=== PATIENT | female | born 1955 | race Two or more races ===

== ENCOUNTER 2025-03-11 20:14 | Emergency (ER) | payer SELFPAY ==
[2025-03-11 20:15] VITALS: BP 147/76
[2025-03-11 20:39] LABS: Urine Character Clear (Clear)
[2025-03-11 20:48] LABS: Urine Squamous Cell >30 /LPF (Few)
[2025-03-11 20:49] LABS: Urine Red Blood Cell None Seen /HPF (0-2)
[2025-03-11 20:55] LABS: Hematocrit 41.9 % (37.0-47.0); Hemoglobin 14.0 g/dL (12.0-16.0); Mean Corp Hgb Conc. 33.4 g/dL (33.0-37.0); Mean Corpuscular Volume 89.3 fL (81.0-99.0); Platelet Count 158 10^3/uL (130-400); Red Cell Dist. Width 13.4 % (11.5-14.5)
[2025-03-11 20:56] LABS: ALT (SGPT) 13 U/L (0-35); AST (SGOT) 23 U/L (14-36); Albumin 4.2 g/dl (3.5-5.0); Alkaline Phosphatase 82 U/L (38-126); Blood Urea Nitrogen 14 mg/dl (7-17); Calcium 9.2 mg/dl (8.4-10.2); Carbon Dioxide 27 mmol/L (22-30); Chloride 102 mmol/L (98-107); Glucose 341 mg/dl (70-99); Lipase 19 U/L (23-300); Potassium 4.9 mmol/L (3.5-5.1); Sodium 133 mmol/L (135-145); Total Protein 7.9 g/dl (6.3-8.2); eGFR > 60.00
--- NOTE | 2025-03-11 21:35 | ED.GENMED ---
Addendum entered and electronically signed by Isma Garcia PA-C 03/15/25 09:50:
Called and left message for pt to return call regarding positive urine culture. No abx given. May represent asymptomatic bacteruria
Original Note:
History of Present Illness
General
Chief Complaint: Abdominal Pain
Time Seen by Provider: 03/11/25 21:34
History of Present Illness
History of Present Illness:
FOCUSED PAST MEDICAL HISTORY
- IDDM, had cholecystectomy and appendectomy in the past
REVIEW OF OLD RECORDS
- No old records available for review in [facility]
Note:
CHIEF COMPLAINT(S)
Severe sharp abdominal pain, predominantly on the right side.
HISTORY OF PRESENT ILLNESS
The patient is a 69-year-old female presenting with severe sharp abdominal pain. She reports that the pain started today and is described as very bad. The pain is predominantly located on the right side of the abdomen but also radiates throughout
her stomach and to her back. The patient notes that the pain is sharp and intermittent. She has a history of having her gallbladder removed and possibly the appendix, although this is uncertain. Surgical scars are present in the epigastrium and
right upper quadrant. She reports vomiting approximately one week ago but has had no episodes since. She took medication called 'Bolmol-Nol' prior to arriving at the emergency room. The patient has had a normal appetite today and does not require
narcotic medication for pain relief at this time.
ADDITIONAL HISTORY OBTAINED FROM SOURCES OTHER THAN THE PATIENT
The patient�s family reports that she experienced a little vomiting three to four days ago and once last week. They mentioned that the patient occasionally has pain that comes and goes.
EXTERNAL RECORDS REVIEWED
Review of prior records indicates removal of gallbladder with postoperative complications leading to additional surgery. No documented laparoscopic approach noted for appendectomy.
PAST MEDICAL AND SURIGICAL HISTORY
The patient underwent cholecystectomy (gallbladder removal) approximately 20 years ago with subsequent surgical intervention due to inflammation. The presence or absence of appendix removal remains ambiguous. She states she had her surgeries 20
years ago and I see surgical scars in the upper abdomen but no lower abdominal surgical scars.
PHYSICAL EXAM
General: Alert, intermittently appears uncomfortable
Skin: Warm, dry. No signs of shingles.
Head: Normocephalic, atraumatic.
Neck: Supple, trachea midline.
Eye, Ears, Nose, Mouth and Throat: Oral mucosa moist.
Cardiovascular: Normal peripheral perfusion, No edema.
Respiratory: Respirations are non-labored.
Gastrointestinal: Abdomen displays moderate, diffuse tenderness, more pronounced on the right side.
Back: Normal range of motion, Normal alignment.
Musculoskeletal: Normal ROM, normal strength.
Neurological: Alert and oriented to person, place, time, and situation, No focal neurological deficit observed.
Psychiatric: Cooperative, appropriate mood & affect.
PLAN
1. Initiate intravenous line for fluid administration.
2. Order a computed tomography (CAT) scan of the abdomen to evaluate for possible appendiceal pathology or other causes of pain.
3. Monitor the patients condition and reassess after imaging.
4. Address pain management as appropriate, will give narcotic analgesia
DIFFERENTIAL DIAGNOSIS
The Differential Diagnosis includes, in no particular order and is not limited to:
1. Appendicitis
2. Pancreatitis
3. Biliary colic or cholecystitis
4. Intestinal obstruction
5. Diverticulitis
6. Nephrolithiasis
7. Gastritis or peptic ulcer disease
8. Hepatitis
9. Mesenteric ischemia
10. Abdominal aortic aneurysm
RADIOLOGY
- CT shows normal appendix, no definite bowel obstruction, status post cholecystectomy
LABS
- White count is normal, chemistry showed glucose of 341 but normal bicarb, lipase normal, urinalysis suggest contamination
SUMMARY OF ENCOUNTER
The patient, a 69-year-old female, presented to the emergency department with severe sharp abdominal pain, predominantly on the right side, radiating throughout her stomach and back. The patient has a history of cholecystectomy but still retains her
appendix as confirmed by imaging. The initial concern of appendicitis was ruled out as the appendix is not inflamed. Imaging also showed no signs of intestinal obstruction. The patient was noted to have some degree of constipation, which could be
contributing to her abdominal pain. A narcotic was administered for pain relief, and she was advised to take polyethylene glycol 3350 (MiraLAX) once or twice daily to relieve constipation, as a bowel movement may alleviate her pain. The decision was
made to discharge the patient with follow-up recommendations.
DISPOSITION
Discharge.
ASSESSMENT
The patients right-sided abdominal pain is likely related to constipation, as imaging ruled out appendicitis and intestinal obstruction.
EMERGENCY TREATMENTS ADMINISTERED
A narcotic was administered for pain relief.
PATIENT EDUCATION AND COUNSELING
The patient was advised to take polyethylene glycol 3350 (MiraLAX) once or twice daily to manage constipation over the next few days, as this may help alleviate abdominal pain.
FOLLOW-UP INSTRUCTIONS
The patient was discharged with instructions to follow up with her primary care physician for further evaluation if symptoms persist or worsen.
MEDICATION RECONCILIATION
- Polyethylene glycol 3350 (MiraLAX) was recommended for constipation management.
MEDICAL DECISION MAKING
-Complexity of Data Reviewed: Chronic conditions affecting care [History of cholecystectomy] and the differential diagnosis includes appendicitis, pancreatitis, biliary colic or cholecystitis, intestinal obstruction, diverticulitis, nephrolithiasis,
gastritis or peptic ulcer disease, hepatitis, mesenteric ischemia, abdominal aortic aneurysm.
-Data:
Category 1
Clinical information was obtained from an independent historian (family provided additional history regarding recent vomiting episodes).
Category 2
My independent interpretation of the computed tomography (CT) scan indicates the appendix is present and not inflamed, no signs of obstruction.
-Risk:
Consideration of Admission/Observation: Escalation of care including admission/observation was considered given the complexity and risk of the patients presenting complaint, exam findings, and their underlying comorbidities. However, ultimately I
feel the patient is safe for outpatient management with close follow-up. Reasoning: Work-up reassuring, does not reveal any acute life/organ-threatening processes, patients symptoms well controlled upon reevaluation, reexamination is reassuring,
vitals are stable, patient agreeable with discharge, reliable for follow-up.
DIAGNOSIS
- Abdominal pain, unspecified (ICD-10: R10.9)
- Constipation (ICD-10: K59.00)
UPDATE
- CT imaging reassuring and does show some degree of constipation
- Family states she has been constipated, recommended MiraLAX
- No sign of appendicitis based on CT, she does still have her appendix
- Appears comfortable on reassessment 11:05 PM
Phy Exam
Physical Exam
Physical Exam:
See HPI
Course
Orders/Labs/Results
Orders:
Orders
03/11/25 20:31
Complete Blood Count/With Diff Urgent
Comprehensive Metabolic Panel Urgent
Lipase Urgent
Urine Microscopic Reflex Cult Urgent
Urine Reflex Culture from [facility] [Urinalysis Reflex To Culture] Urgent
Date Specimen was Collected: 03/11/25
Time Specimen was Collected: 20:20
Urine Culture Urgent
ALEXYS Source: U
Specimen Description:
Date Specimen was Collected: 03/11/25
Time Specimen was Collected: 20:20
03/11/25 21:45
CT Abd/pelvis W Iv Cont Urgent
Comment:
Reason For Exam: R sided abd pain; resolved vomiting; ongoing pain
HYDROmorphone [Dilaudid] 0.5 mg IV NOW STA
Ondansetron Injectable [Zofran] 4 mg IV NOW STA
03/11/25 21:56
0.9% Sodium Chloride 1000 ml [Nss] 1,000 ml IV BOLUS
HYDROmorphone [Dilaudid] 0.5 mg IV NOW STA
Ondansetron Injectable [Zofran] 4 mg IV NOW STA
Abnormal Lab Results
03/11/25
20:31
MPV 10.9 H fL
(7.4-10.4)
Absolute Monos (auto) 0.8 H 10^3/uL
(0.1-0.6)
Sodium 133 L mmol/L
(135-145)
Glucose 341 H mg/dl
(70-99)
Lipase 19 L U/L
(23-300)
Urine Nitrite (Reflex) Positive A
(Negative)
Leukocyte Esterase Rfl 1+ A
(Negative)
Urine WBC (Reflex) 11-15 A /HPF
(0-5)
Urine Bacteria (Reflex) Many A
(Negative)
Urine Glucose 4+ A
(Negative)
03/11/25 20:31
03/11/25 20:31
Vital Signs
Initial and Last Documented VS:
Initial Vital Signs
Temp Pulse Resp BP Pulse Ox
36.7 C 74 18 147/76 97
03/11/25 20:15 03/11/25 20:15 03/11/25 20:15 03/11/25 20:15 03/11/25 20:15
Last Documented Vital Signs
Temp Pulse Resp BP Pulse Ox
36.7 C 74 18 147/76 97
03/11/25 20:15 03/11/25 20:15 03/11/25 20:15 03/11/25 20:15 03/11/25 21:36
*Pulse Oximetry
SaO2: 97
Oxygen Mode of Delivery: Room air
Patient hypoxic: no
*Critical Care Note
Total Time (30-74mins, 75-104mins- exclusive of procedures): Not Applicable
ED Attending Note
-
Portions of this chart may have been created with voice recognition software.� Occasional wrong word or��sound alike� substitutions may have occurred due to the inherent limitations of voice recognition software.
Discharge Plan
Departure
Referrals:
NONE,* [Family Provider, Internal Medicine]
Interventions
Interventions:
*Risk Screen - Suicide Last Done: 03/11/25 20:15
*General Assessment Last Done: 03/11/25 20:15
*Neglect/Abuse Screening Last Done: 03/11/25 20:15
*ED COVID-19 Vaccine History Last Done: 03/11/25 20:15
*ED Influenza Vaccine History Last Done: 03/11/25 20:15
[facility] Fall Risk Assessment Tool Last Done: 03/11/25 20:22
JV-Buhupx-Feybdyvdor Assessment Last Done: 03/11/25 22:02
Discharge Date and Time
Print Language: Belarusian
[2025-03-11] MEDS: ZOFRAN 4 MG IV (21:58)
[2025-03-11] MEDS: DILAUDID 0.5 MG IV (21:58)
[2025-03-11] MEDS: NSS 1000 IV (22:00)
[2025-03-11 23:17] VITALS: BP 133/70
== END 2025-03-12 00:23 | disposition home or self-care (01) ==
LOC: EMR 20:14
PROVIDERS: EMERGENCY PHYSICIAN Emergency Medicine
DX: R10.A1 Flank pain, right side (principal); K59.00 Constipation, unspecified; E10.9 Type 1 diabetes mellitus without complications; Z79.4 Long term (current) use of insulin; Z90.49 Acquired absence of other specified parts of digestive tract
CPT/HCPCS: 99284; 96374; 96375; 96361; 74177; 80053; 81003; 81015; 83690; 85025; 87077; 87086; 87186; Q9967